=== PATIENT | male | born 1955 | race Two or more races ===

== ENCOUNTER 2019-01-21 02:29 | Inpatient (IN) | payer OTHER ==
[~2019-01-21] VITALS: Ht 177.8 cm; Wt 112.9 kg
--- NOTE | 2019-01-21 09:20 | NUR ---
TELE/RN NOTES RECEIVED PATIENT FROM [facility]. PATIENT WAS BIB 2 EMT FROM [facility]. PATIENT IS ALERT AND ORIENTED X3. NO PAIN OR ACUTE DISTRESS AT THIS TIME. RESPIRATION EVEN AND UNLABORED. PATIENT WAS ABLE TO TRANSFER SELF TO BED. WHILE ATTEMPTING TO DO INITIAL SKIN ASSESSMENT PATIENT REFUSED. PATIENT IS NOTED WITH IV ACCESS ON LEFT HAND. INTACT AND PATENT. FLUSHING WELL. PATIENT ALSO CAME WITH A RED BAG OF BELONGINGS. PATIENT ABLE TO MAKE NEEDS KNOWN. ALL NEEDS ANTICIPATED. KEPT CLEAN AND DRY. CALL LIGHT WITHIN REACHED. BED LOCKED AND IN LOWEST POSITION. SAFETY MAINTAINED. WILL CONTINUE TO MONITOR CLOSELY.
[2019-01-21] MEDS ORDERED: AMLO10TA7 PO (10:25)
[2019-01-21] MEDS ORDERED: LISI40TA4 PO (10:25)
[2019-01-21] MEDS ORDERED: FOLI1TAB16 PO (10:25)
[2019-01-21] MEDS ORDERED: ALBU1.25 INH (10:25)
--- NOTE | 2019-01-21 10:25 | NUR ---
TELE/RN NOTES CALLED [facility] AND PAGED DR. COOK FOR ADMITTING ORDERS. AWAITING FOR CALL BACK.
--- NOTE | 2019-01-21 10:38 | NUR ---
TELE/RN NOTES RECEIVED CALL BACK FROM DR. COOK. ACCORDING TO HIM HE WILL COME TO THE UNIT TO DO THE ADMITTING ORDERS. PATIENT REMAINS IN STABLE CONDITION. WILL CONTINUE TO MONITOR.
[2019-01-21 12:00] VITALS: BP 163/74
[2019-01-21] MEDS ORDERED: LORAZEPAM INJ 2 MG/ML VIAL IV PRN (13:30)
[2019-01-21] MEDS ORDERED: ACETAMINOPHEN 325 MG TABLET PO PRN (13:30)
[2019-01-21] MEDS ORDERED: MVI-12 10ML IV ONE (13:30)
[2019-01-21] MEDS ORDERED: ONDANSETRON HCL/PF 4 MG/2 ML VIAL IVP PRN (13:30)
[2019-01-21] MEDS ORDERED: IV NS 0.9% 1,000 ML IV SCH (13:30)
[2019-01-21] MEDS ORDERED: ALBUTEROL HALF STRENGTH 1.25 MG/3 ML VIAL.NEB INH PRN (13:30)
[2019-01-21] MEDS ORDERED: MAGNESIUM HYDROXIDE 30 ML UDC PO PRN (13:30)
[2019-01-21] MEDS ORDERED: MAG HYDROX/AL HYDROX/SIMETH 30 ML UDC PO PRN (13:30)
[2019-01-21] MEDS ORDERED: Z GUARD REMEDY 2 OZ OINT TP PRN (13:30)
[2019-01-21] MEDS ORDERED: HYDROCODONE/APAP 5/325MG 1 EACH TABLET PO PRN (13:30)
[2019-01-21] MEDS ORDERED: ZOLPIDEM TARTRATE 5 MG TABLET PO PRN (13:30)
[2019-01-21] MEDS ORDERED: MVI ADULT 10ML VIAL = 1AMP 10 ML in IV NS 0.9% 1,000 ML IV ONE (14:00)
[2019-01-21] MEDS: Thiamine 100 MG in IV D5W 50 ML IV SCH (14:55)
[2019-01-21] MEDS: LISINOPRIL (20MG) 20 MG TABLET PO SCH (15:03)
[2019-01-21] MEDS: Folic acid 1 MG in IV D5W 50 ML IV SCH (15:32)
[2019-01-21 16:00] VITALS: BP 192/97
--- NOTE | 2019-01-21 18:55 | NUR ---
MS/RN CLOSING NOTES PATIENT CONTINUES TO REMAIN IN STABLE CONDITION THROUGHOUT THE SHIFT. PROVIDED COMFORT AND SAFETY. NO PAIN OR ACUTE DISTRESS AT THIS TIME. RESPIRATION EVEN AND UNLABORED. SKIN IS DRY WARM TO TOUCH. PATIENT ABLE TO TOLERATE MEALS AND MEDS WELL. IV ACCESS ON L HAND INTACT AND PATENT. FLUSHING WELL. ALL NEEDS ANTICIPATED. KEPT CLEAN AND DRY. CALL LIGHT WITHIN REACHED. SAFETY MAINTAINED. BED LOCKED AND IN LOWEST POSITION. WILL CONTINUE TO MONITOR CLOSELY. ENDORSED TO PM SHIFT FOR SANDRA.
[2019-01-21 20:00] VITALS: BP 156/84
[2019-01-21] MEDS ORDERED: IV NS 0.9% 1,000 ML IV PRN (23:00)
[2019-01-22 04:00] VITALS: BP_SYST 149; BP_SYST 161; BP_DIAS 71; BP_DIAS 73
[2019-01-22 06:30] LABS: BASOPHILS % (AUTO) 0.9 % (0.0-2.0); EOSINOPHILS % (AUTO) 0.7 % (0.0-6.0); HEMATOCRIT 39 % (39-51); HEMOGLOBIN 13.2 g/dL (13.5-17.5); LYMPHOCYTES # (AUTO) 1.1 /CMM (0.8-4.8); LYMPHOCYTES % (AUTO) 25.6 % (20.0-44.0); MEAN CORPUSCULAR HGB CONC 34 g/dl (31.0-36.0); MEAN CORPUSCULAR VOLUME 99 fL (80-96); MONOCYTES # (AUTO) 0.9 /CMM (0.1-1.30); NEUTROPHILS # (AUTO) 2.4 /CMM (1.8-8.9); NEUTROPHILS % (AUTO) 52.8 % (43.0-81.0); PLATELET COUNT (AUTO) 143 /CMM (150-450); RED BLOOD CELL COUNT(AUTO) 3.88 MIL/uL (4.5-6.0); WHITE BLOOD COUNT (AUTO) 4.5 K/uL (4.3-11.0)
--- NOTE | 2019-01-22 06:41 | NUR ---
RN CLOSING NOTES, PATIENT IN BED AWAKE AT THIS TIME, ASKING FOR BREAKFAST, A/O X3 ABLE TO VERBALIZED NEEDS, BREATHING EVEN AND UNLABORED, IV ACCESS ON RIGHT HAND PATENT AND INTACT, ALL NEEDS PROVIDED, KEPT CLEAN AND DRY, BED LOCKED AND IN LOWEST POSITION, 2 S/R OF BED UP, CALL LIGHT WITHIN REACHED, ALL SAFETY MEASURES IN PLACED, WILL ENDORSED CONTINUITY OF CARE TO ONCOMING NURSE.
[2019-01-22 06:49] LABS: CREATININE 0.6 mg/dL (0.6-1.3); MAGNESIUM 1.4 mg/dL (1.8-2.4); PHOSPHORUS 3.5 mg/dL (2.5-4.9); POTASSIUM 3.3 mmol/L (3.5-5.1)
--- NOTE | 2019-01-22 07:15 | NUR ---
RN OPENING NOTES RECEIVED PATIENT AWAKE, RESTING IN BED. HE IS AOX4, VERBAL, AND AMBULATORY. HE DENIES ANY PAIN OR DISCOMFORT AT THIS TIME. HE IS ON RA, TOLERATING WELL, SHOWS NO S/SX OF RESP DISTRESS OR SOB. BLE ARE INFLAMED, HARD TO TOUCH, WITH DRY FLAKY SKIN, WILL TAKE PICTURES AND PLACE IN PT CHART. IV SITE ON R HAND 22G INFUSING NS AT 100 ML/HR. SAFETY MEASURES HAVE BEEN IMPLEMENTED, CALL LIGHT IS WITHIN REACH, BED IS IN LOWEST AND LOCKED POSITION, SIDE RAILS UP X2, WILL CONTINUE TO MONITOR FOR ANY CHANGES.
--- NOTE | 2019-01-22 07:58 | NUR ---
PT WENT TO THE BATHROOM AND USED THE CALL LIGHT. WENT INTO THE BATHROOM AND PT IS SITTING ON THE TOILET WITH BLOOD DRIPPING FROM HIS IV SITE. IV SITE WAS REMOVED, BLOOD WAS CLEANED, GOWN WAS CHANGED. WILL INSERT A NEW IV
[2019-01-22 08:00] VITALS: BP 156/86
[2019-01-22] MEDS ORDERED: FOLIC ACID 1 MG TABLET PO SCH (09:00)
[2019-01-22] MEDS: AMLODIPINE BESYLATE 10 MG TABLET PO SCH (09:07)
[2019-01-22] MEDS: CYANOCOBALAMIN 500 MCG TABLET PO SCH (09:08)
[2019-01-22] MEDS: LISINOPRIL (20MG) 20 MG TABLET PO SCH (09:08)
--- NOTE | 2019-01-22 10:10 | NUR ---
Social service consult requested by Dr. Castillo for homelessness and alcohol abuse. Pt. is a 63 year old male who was admitted from [facility] to [facility] for Hyponatremia. SW met with pt. bedside. Pt. is alert and oriented x 4. Pt. was sitting upright on his bed watching TV. Pt. has his belongings in his room. Pt. states he is homeless and resides at a bus stop on [address] in [place]. PERNELL offered pt. [facility] placement in [place], however pt. declined stating, " I know where it is but I want to go back to my bus stop." Pt. declined all other resources. Pt. receives food stamps monthly. Pt's sister Rowena, is his emergency contact . Prior to being homeless, pt. was living with is brother for about a year but got into an argument and decided to live on his own. Pt. drinks approximately 12 packs of beer per day. Pt. declined referrals to alcohol rehabilitation programs. Pt. declined all resources and wants to go back to [place]. Pt. will require taxi transportation to [facility] located at [address] [facility] [place] [address]. Pt. states he knows how to get to [place] via [employer]. PERNELL updated pt's RN and DWIGHT Martin regarding pt's discharge plan. PERNELL placed Homeless patient Waiver form in pt's chart for him to sign upon discharge. PERNELL updated pt's RN regarding Homeless waiver form.
[2019-01-22] MEDS ORDERED: POTASSIUM CHLORIDE 20 MEQ TAB.PRT.SR PO SCH (11:00)
--- NOTE | 2019-01-22 11:04 | NUR ---
PT IS NONCOMPLIANT WITH IV SITES, PAGED DR. MASCORRO TO TRY AND SEE IF WE CAN CHANGE ALL IV MEDS TO PO. WAITING FOR HIS RESPONSE.
[2019-01-22] MEDS: Magnesium 1GM/D5W 100ML PREMIX 100 ML IV SCH ×4 (11:22→14:58)
[2019-01-22] MEDS: Thiamine 100 MG in IV D5W 50 ML IV SCH (16:34)
[2019-01-22] MEDS: Folic acid 1 MG in IV D5W 50 ML IV SCH (17:43)
--- NOTE | 2019-01-22 19:37 | NUR ---
RN CLOSING NOTES PATIENT IS RESTING IN BED COMORTABLY AT THIS TIME, DENIES ANY PAIN OR DISCOMFORT. VITAL SIGNS ARE STABLE, NO ACUTE CHANGES OCCURRED THROGHOUT THE SHIFT, PT NEEDS HAVE BEEN MET. SAFETY MEASURES HAVE BEEN IMPLEMENTED, CALL LIGHT IS WITHIN REACH, BED IS IN LOWEST AND LOCKED POSITION, SIDE RAILS UP X2, PT HAS BEEN ENDORSED TO NIGHTSHIFT RN FOR CONTINUITY OF CARE.
[2019-01-22 20:00] VITALS: BP 127/71
--- NOTE | 2019-01-22 20:14 | NUR ---
[address] HILLIARD AND OBTAINED 1:1 SITTER ORDER DUE TO PATIENT IMPULSIVENESS, TRYING TO GET OUT OF BED WITHOUT CALLING FOR ASSISTANCE, AND WALKING TO BATHROOM WITH UNSTEADY GAIT. ORDER NOTED AND CARRIED OUT.
[2019-01-23 04:07] VITALS: BP 148/80
[2019-01-23 07:39] LABS: BASOPHILS # (AUTO) 0.1 /CMM (0.0-0.2); BASOPHILS % (AUTO) 0.9 % (0.0-2.0); EOSINOPHILS % (AUTO) 2.8 % (0.0-6.0); HEMATOCRIT 39 % (39-51); HEMOGLOBIN 13.1 g/dL (13.5-17.5); LYMPHOCYTES # (AUTO) 1.4 /CMM (0.8-4.8); LYMPHOCYTES % (AUTO) 22.8 % (20.0-44.0); MEAN CORPUSCULAR HGB CONC 34 g/dl (31.0-36.0); MEAN CORPUSCULAR VOLUME 101 fL (80-96); MONOCYTES % (AUTO) 16.8 % (2.0-12.0); NEUTROPHILS # (AUTO) 3.4 /CMM (1.8-8.9); NEUTROPHILS % (AUTO) 56.7 % (43.0-81.0); PLATELET COUNT (AUTO) 152 /CMM (150-450); RED BLOOD CELL COUNT(AUTO) 3.89 MIL/uL (4.5-6.0); WHITE BLOOD COUNT (AUTO) 6.1 K/uL (4.3-11.0)
[2019-01-23 08:22] LABS: CALCIUM, SERUM 9.2 mg/dL (8.5-10.1); CREATININE 0.9 mg/dL (0.6-1.3); MAGNESIUM 1.8 mg/dL (1.8-2.4); POTASSIUM 3.5 mmol/L (3.5-5.1)
[2019-01-23] MEDS: CYANOCOBALAMIN 500 MCG TABLET PO SCH (09:24)
[2019-01-23] MEDS: AMLODIPINE BESYLATE 10 MG TABLET PO SCH (09:25)
[2019-01-23] MEDS: LISINOPRIL (20MG) 20 MG TABLET PO SCH (09:25)
[2019-01-23 12:00] VITALS: BP 135/87
--- NOTE | 2019-01-23 14:59 | NUR ---
MS RN NOTES PT LEFT THE HOSPITAL; AT 1450 WITH WHEELCHAIR AND HELP OF SITTER. PT WAS STABLE. EDUCATION PROVIDED.
[2019-01-23] MEDS ORDERED: THIAMINE HCL 100 MG TABLET PO SCH (15:00)
[2019-01-23] MEDS ORDERED: FOLIC ACID 1 MG TABLET PO SCH (15:00)
== END 2019-01-23 15:15 | disposition home or self-care (01) | DRG 775 ==
LOC: TELE1 09:58 → MEDSG1 12:23
PROVIDERS: ADMIT Family Medicine; ATTEND Family Medicine
DX: F10.129 Alcohol abuse with intoxication, unspecified (principal); I10 Essential (primary) hypertension; Z59.0 Homelessness; Z87.891 Personal history of nicotine dependence; J44.9 Chronic obstructive pulmonary disease, unspecified; Y90.9 Presence of alcohol in blood, level not specified
CPT/HCPCS: 36415; 80048-TC; 80061-TC; 83735-TC; 84100-TC; 85025-TC; 87081-TC; G0378; J2060; J3411; J3475; J3490; J7030; J7060

== ENCOUNTER 2019-02-01 21:54 | Inpatient (IN) | payer OTHER ==
[~2019-02-01] VITALS: Ht 188 cm; Wt 111.6 kg
[~2019-02-01 21:54] MED LIST: ALBU1.25 INH; AMLO10TA7 PO; FOLI1TAB16 PO; LISI40TA4 PO
[2019-02-02] VITALS (7 sets, daily range): BP systolic 126–167; BP diastolic 73–96
--- NOTE | 2019-02-02 01:25 | NUR ---
BUCKRAM SEWER NOTES PATIENT ARRIVED ON THE UNIT AT 0118 VIA GURNEY. PATIENT IS A DIRECT ADMIT FROM [facility]. PATIENT IS A/O X 2. PATIENT STATES HE WANTS TO BE FULL CODE. PATIENT STATES HE IS HOMELESS. VITALS UPON ADMISSION ARE: 140/96, PULSE 84, RESPIRATIONS 16, TEMP 98.1, O2 SAT 98% ON ROOM AIR. SR 82 ON TELE MONITOR. PATIENT DENIES PAIN AT THIS TIME. WEIGHT 246 LBS VIA BED SCALE, PATIENT STATES HE IS 6 FEET 2 INCHES TALL. SKIN ASSESSMENT DONE. IV SITE ON LEFT HAND INTACT AND PATENT. PATIENT UNABLE TO STATE IF HE TAKES ANY HOME MEDICATION. SAFETY PRECAUTIONS IMPLEMENTED; CALL LIGHT WITHIN REACH, BED LOCKED, BED LOWEST POSITION, SIDE RAILS UP X2. SKIN ASSESSMENT DONE, WITH PHOTOS. WILL CONTINUE TO MONITOR.
--- NOTE | 2019-02-02 01:35 | NUR ---
RN NOTES ABDOMEN SOFT, NON DISTENDED. NO REBOUND OR GUARDING. PATIENT WITH NO COMPLAINTS OF PAIN AT THIS TIME.
--- NOTE | 2019-02-02 01:40 | NUR ---
RN NOTES PATIENT UNABLE TO GIVE DIRECT ANSWERS. PATIENT STILL RESPONDS TO SOME QUESTIONS. PATIENT STATES HE JUST WANTS TO REST RIGHT NOW.
--- NOTE | 2019-02-02 02:25 | NUR ---
RN NOTES CALLED [facility] TO [facility] MAGGIE ROY NP FOR ADMISSION ORDERS.
--- NOTE | 2019-02-02 02:53 | NUR ---
RN NOTES NO CALL BACK FROM [facility] MAGGIE ROY. EPIC PROGRAMS DIRECTOR TRYING AGAIN.
--- NOTE | 2019-02-02 02:55 | NUR ---
RN NOTES RAYON TESTER, MAGGIE ROY CALLED BACK. AWAITING ADMISSION ORDERS.
[2019-02-02] MEDS ORDERED: ONDANSETRON HCL/PF 4 MG/2 ML VIAL IVP PRN (03:30)
[2019-02-02] MEDS ORDERED: MAG HYDROX/AL HYDROX/SIMETH 30 ML UDC PO PRN (03:30)
[2019-02-02] MEDS ORDERED: ACETAMINOPHEN 325 MG TABLET PO PRN (03:30)
[2019-02-02] MEDS ORDERED: MORPHINE SULFATE INJ 2 MG/ML DISP.SYRIN IV PRN (03:30)
[2019-02-02] MEDS ORDERED: HYDROCODONE/APAP 5/325MG 1 EACH TABLET PO PRN (03:30)
[2019-02-02] MEDS ORDERED: Z GUARD REMEDY 2 OZ OINT TP PRN (03:30)
[2019-02-02] MEDS ORDERED: MAGNESIUM HYDROXIDE 30 ML UDC PO PRN (03:30)
[2019-02-02] MEDS: IV NS 0.9% 1,000 ML IV PRN (03:41)
[2019-02-02 06:34] LABS: BASOPHILS # (AUTO) 0.1 /CMM (0.0-0.2); BASOPHILS % (AUTO) 1.2 % (0.0-2.0); EOSINOPHILS % (AUTO) 1.6 % (0.0-6.0); HEMATOCRIT 36 % (39-51); HEMOGLOBIN 12.4 g/dL (13.5-17.5); LYMPHOCYTES # (AUTO) 1.1 /CMM (0.8-4.8); MEAN CORPUSCULAR HGB CONC 34 g/dl (31.0-36.0); MEAN CORPUSCULAR VOLUME 99 fL (80-96); MONOCYTES # (AUTO) 0.8 /CMM (0.1-1.30); MONOCYTES % (AUTO) 15.7 % (2.0-12.0); NEUTROPHILS % (AUTO) 59.5 % (43.0-81.0); PLATELET COUNT (AUTO) 266 /CMM (150-450); RED BLOOD CELL COUNT(AUTO) 3.65 MIL/uL (4.5-6.0); WHITE BLOOD COUNT (AUTO) 5.1 K/uL (4.3-11.0)
--- NOTE | 2019-02-02 06:56 | NUR ---
RN CLOSING NOTES PATIENT AWAKE, A/O X 3. NO SIGNS OF RESPIRATORY DISTRESS. NO SHORTNESS OF BREATH NOTED. PATIENT IS AFEBRILE. PATIENT STABLE. NO SIGNS OF FACIAL GRIMACING INDICATING PAIN OR DISCOMFORT AT THIS TIME. LEFT HAND IV SITE INTACT AND PATENT, NO REDNESS OR INFILTRATION. IVF RUNNING AT 75 ML/HR. PATIENT KEPT CLEAN, DRY AND COMFORTABLE. SAFETY PRECAUTIONS IMPLEMENTED; CALL LIGHT WITHIN REACH, BED LOWEST POSITION, BED LOCKED, SIDE RAILS UP X2. ALL NEEDS ATTENDED TO AT THIS TIME. WILL ENDORSE TO DAYSWYFT NURSE FOR CONTINUITY OF CARE.
[2019-02-02 06:59] LABS: ALBUMIN 3.1 g/dL (3.4-5.0); BILIRUBIN,TOTAL 0.8 mg/dL (0.2-1.0); CALCIUM, SERUM 8.7 mg/dL (8.5-10.1); CREATININE 0.7 mg/dL (0.6-1.3); MAGNESIUM 1.6 mg/dL (1.8-2.4); PHOSPHORUS 3.8 mg/dL (2.5-4.9); POTASSIUM 4.3 mmol/L (3.5-5.1); TOTAL PROTEIN, SERUM 7.2 g/dL (6.4-8.2)
[2019-02-02 07:05] LABS: THYROID STIMULATING HORMONE 3.456 uIU/mL (0.358-3.74)
--- NOTE | 2019-02-02 07:29 | NUR ---
RN OPENING NOTE PT WAS RECEIVED IN BED AT LOWEST AND LOCKED POSITION WITH SIDE RAILS UP X2, A/O 2-3 BREATHING EVEN AND UNLABORED ON RA WITH NO S/S OF ANY DISTRESS OR PAIN NOTED AT THIS TIME, ON TELE MONITOR SHOWING SR, CURRENTLY NPO FOR DIAGNOSIS OF SBO, PT NOTED TO CURRENTLY BE ANGRY AND HOSTILE AND NOT WANTING TO BE DISTURBED, SAFETY PRECAUTIONS IN PLACE, CALL LIGHT WITHIN REACH, WILL MONITOR PT ACCORDINGLY
[2019-02-02] MEDS: PANTOPRAZOLE 40 MG VIAL IV SCH (08:03)
[2019-02-02] MEDS ORDERED: ALBU8.5H8 IH (08:55)
[2019-02-02] MEDS: Magnesium 1GM/D5W 100ML PREMIX 100 ML IV SCH ×2 (11:28→12:13)
--- NOTE | 2019-02-02 18:09 | NUR ---
RN CLOSING NOTE PT IN BED AT LOWEST AND LOCKED POSITION WITH SIDE RAILS UP X2, A/O X3 BREATHING EVEN AND UNLABORED WITH NO S/S OF ANY DISTRESS OR PAIN, IV IS PATENT AND INTACT, PLAN FOR SBFT TOMORROW, SAFETY PRECAUTIONS IN PLACE, CALL LIGHT WITHIN REACH, ALL NEEDS ATTENDED TO, WILL ENDORSE TO NIGHT RN FOR SANDRA
--- NOTE | 2019-02-02 19:30 | NUR ---
MS RN OPENING NOTE RECEIVED PATIENT IN BED. A/OX3. TOLERATING ROOM AIR. RESPIRATIONS ARE EVEN AND UNLABORED. NO SIGNS OF SOB NOTED. DENIES PAIN AT THIS TIME. NO APPARENT DISTRESS. IV ACCESS IN L HAND PATENT AND RUNNING NS @75ML/HR. BED IS LOW AND LOCKED, SIDE RAILS UP X2, HOB 30 DEGREES. CALL LIGHT WITHIN REACH. WILL CONTINUE TO MONITOR.
[2019-02-02] MEDS ORDERED: LORAZEPAM INJ 2 MG/ML VIAL IV PRN (22:30)
[2019-02-02] MEDS ORDERED: ALBUTEROL FS 2.5 MG/3 ML VIAL.NEB NEB PRN (23:00)
[2019-02-03] MEDS: IV NS 0.9% 1,000 ML IV PRN (03:16)
--- NOTE | 2019-02-03 06:54 | NUR ---
MS RN CLOSING NOTE PATIENT IN BED. A/OX3. REMAINS TOLERATING ROOM AIR. RESPIRATIONS ARE EVEN AND UNLABORED. NO SOB NOTED. NO C/O PAIN. NO APPARENT DISTRESS THROUGHOUT SHIFT. IV ACCESS MAINTAINED IN L HAND PATENT AND RUNNING NS @75ML/HR. BED REMAINS LOW AND LOCKED, SIDE RAILS UP X2, HOB 30 DEGREES. CALL LIGHT WITHIN REACH. WILL ENDORSE TO NEXT SHIFT.
[2019-02-03 07:02] LABS: BASOPHILS # (AUTO) 0.1 /CMM (0.0-0.2); BASOPHILS % (AUTO) 1.3 % (0.0-2.0); EOSINOPHILS % (AUTO) 2.1 % (0.0-6.0); HEMATOCRIT 38 % (39-51); LYMPHOCYTES # (AUTO) 1.5 /CMM (0.8-4.8); LYMPHOCYTES % (AUTO) 24.5 % (20.0-44.0); MEAN CORPUSCULAR HGB CONC 34 g/dl (31.0-36.0); MEAN CORPUSCULAR VOLUME 100 fL (80-96); MONOCYTES # (AUTO) 0.7 /CMM (0.1-1.30); MONOCYTES % (AUTO) 12.6 % (2.0-12.0); NEUTROPHILS # (AUTO) 3.5 /CMM (1.8-8.9); NEUTROPHILS % (AUTO) 59.5 % (43.0-81.0); PLATELET COUNT (AUTO) 306 /CMM (150-450); WHITE BLOOD COUNT (AUTO) 5.9 K/uL (4.3-11.0)
--- NOTE | 2019-02-03 07:15 | NUR ---
MS RN INITIAL NOTES Report received at bedside. Patient received in bed, awake, alert and verbally responsive. No S&S of distress. Denies any pain at the moment. Safety measures in place. Will continue to monitor and assess patient
[2019-02-03 07:34] LABS: CREATININE 0.7 mg/dL (0.6-1.3); MAGNESIUM 1.8 mg/dL (1.8-2.4); PHOSPHORUS 3.6 mg/dL (2.5-4.9); POTASSIUM 3.8 mmol/L (3.5-5.1)
[2019-02-03 08:00] VITALS: BP 142/80
[2019-02-03] MEDS ORDERED: LISINOPRIL (20MG) 20 MG TABLET PO SCH (09:00)
[2019-02-03] MEDS ORDERED: THIAMINE HCL 100 MG TABLET PO SCH (09:00)
[2019-02-03] MEDS ORDERED: FOLIC ACID 1 MG TABLET PO SCH (09:00)
[2019-02-03] MEDS ORDERED: AMLODIPINE BESYLATE 10 MG TABLET PO SCH (09:00)
[2019-02-03] MEDS: PANTOPRAZOLE 40 MG VIAL IV SCH (09:39)
[2019-02-03] MEDS ORDERED: DIATR MEGLU/DIATRIZOATE SODIUM 120 ML BOTTLE (GASTROGRAPHIN) ONE (10:52)
--- NOTE | 2019-02-03 10:57 | NUR ---
MS RN DIAGNOSTIC TESTING Patient was transported to Radiology for abdominal XR via wheelchair in stable condition. Patient awake, alert and oriented. Verbally responsive.
--- NOTE | 2019-02-03 10:58 | NUR ---
Social service consult requested by Dr. Bravo for homelessness. Pt. is a 63 year old male who was transferred from [facility] for partial SBO and Hyponatremia. SW attempted to meet with the pt., however pt. was not in the room. Pt. for the Radiology dept for abdominal XR. SW to see pt. later this afternoon.
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
[2019-02-03 15:59] VITALS: BP 123/71
--- NOTE | 2019-02-03 16:15 | NUR ---
MS ELECTRONIC GLUER NOTES Patient is cleared for discharge per provider. Discharge papers provided, reviewed and signed by the patient. Belongings form reviewed and signed by patient as well along with homeless waiver form. All forms placed in chart. IV access removed with cath tip intact. No bleeding noted. ID band removed. Assisted patient with changing clothes and bathroom use. Provided pants to patient as well. Patient denies any pain/discomfort. No SOB/labored breathing noted. Not in any type of distress. Afebrile. Transportation arranged by property worker. Will call taxi for fern picker. Will continue to monitor patient. Safety measures implemented. 123/71 74 20 98.3 100% room air
--- NOTE | 2019-02-03 16:20 | NUR ---
MS MANAGER PERSONNEL SELECTION NOTES Train tickets and Taxi voucher on hand. Called Taxi and will be ready for picker and sorter load and unload in 15 -20 minutes. Patient made aware. Addendum: 02/03/19 at 1649 by HUNG KEITA RN MS BRUNNERMANAGER PERSONNEL SELECTION NOTES Patient [facility] for taxi picker and sorter load and unload via wheelchair in stable condition. All belongings with patient. Assisted to get on the taxi with no incidence.
== END 2019-02-03 16:43 | disposition home or self-care (01) | DRG 247 ==
LOC: TELE 02-02 01:11 → MED 02-02 08:36
PROVIDERS: ADMIT Hospitalist; ATTEND Hospitalist
DX: K56.600 Partial intestinal obstruction, unspecified as to cause (principal); E44.1 Mild protein-calorie malnutrition; I25.10 Atherosclerotic heart disease of native coronary artery without angina pectoris; D53.9 Nutritional anemia, unspecified; E66.9 Obesity, unspecified; I10 Essential (primary) hypertension; J44.9 Chronic obstructive pulmonary disease, unspecified; Z87.891 Personal history of nicotine dependence; F10.10 Alcohol abuse, uncomplicated; Y90.9 Presence of alcohol in blood, level not specified; E83.42 Hypomagnesemia; Z68.31 Body mass index [BMI] 31.0-31.9, adult; Z59.0 Homelessness
CPT/HCPCS: 36415; 74250-TC; 80048-TC; 80053-TC; 80061-TC; 83735-TC; 84100-TC; 84443-TC; 85025-TC; 87081-TC; C9113; G0378; J3475; J7030; Q9963

== ENCOUNTER 2019-02-09 22:15 | Inpatient (IN) | payer OTHER ==
[~2019-02-09] VITALS: Ht 188 cm; Wt 114.8 kg
[~2019-02-09 22:15] MED LIST changes: -ALBU1.25 INH; +ALBU8.5H8 IH
--- NOTE | 2019-02-10 02:25 | NUR ---
RECEIVED PATIENT DIRECT ADMIT FROM [facility] FOR DX BLE CELLULITIS. AO X 3, ABLE TO MAKE NEEDS KNOWN. NO ACUTE DISTRESS N0TED. DENIES ANY PAIN AT THIS TIME. IV SITE PATENT, INTACT; FLUSHED. SKIN ASSESSMENT DONE. BELONGINGS DOCUMENTED. SAFETY REMINDERS GIVEN. ON LOW BED WITH BILATERAL UPPER SIDE RAILS UP. CALL ABDI WITHIN EASY REACH. WILL CONTINUE TO MONITOR. WILL GET ADMIT ORDERS FROM DR. SOLER.
[2019-02-10 02:30] VITALS: BP 132/72
[2019-02-10] MEDS ORDERED: ONDANSETRON HCL/PF 4 MG/2 ML VIAL IV PRN (04:00)
[2019-02-10] MEDS ORDERED: ACETAMINOPHEN 325 MG TABLET PO PRN (04:00)
[2019-02-10] MEDS ORDERED: HYDROCODONE/APAP 10/325MG 1 EA TABLET PO PRN (04:00)
--- NOTE | 2019-02-10 06:00 | NUR ---
PATIENT ASLEEP, EASILY AROUSABLE. RESPIRATIONS EVEN. NO SIGNS OF PAIN NOTED. NEEDS ATTENDED. SAFETY PRECAUTIONS AND COMFORT MEASURES IN PLACE. WILL GIVE REPORT TO DAY SHIFT FOR CONTINUITY OF CARE.
[2019-02-10] MEDS: IV NS 0.9% 1,000 ML IV PRN (06:17)
[2019-02-10] MEDS ORDERED: ENOXAPARIN SODIUM 40 MG/0.4 ML DISP.SYRIN SQ ONE (06:37)
[2019-02-10 07:22] LABS: BASOPHILS # (AUTO) 0.1 /CMM (0.0-0.2); BASOPHILS % (AUTO) 0.8 % (0.0-2.0); EOSINOPHILS % (AUTO) 0.6 % (0.0-6.0); HEMATOCRIT 38 % (39-51); HEMOGLOBIN 12.8 g/dL (13.5-17.5); LYMPHOCYTES # (AUTO) 1.7 /CMM (0.8-4.8); LYMPHOCYTES % (AUTO) 24.3 % (20.0-44.0); MEAN CORPUSCULAR HGB CONC 34 g/dl (31.0-36.0); MEAN CORPUSCULAR VOLUME 99 fL (80-96); MONOCYTES # (AUTO) 0.9 /CMM (0.1-1.30); MONOCYTES % (AUTO) 12.4 % (2.0-12.0); NEUTROPHILS # (AUTO) 4.4 /CMM (1.8-8.9); NEUTROPHILS % (AUTO) 61.9 % (43.0-81.0); PLATELET COUNT (AUTO) 289 /CMM (150-450); RED BLOOD CELL COUNT(AUTO) 3.86 MIL/uL (4.5-6.0)
[2019-02-10 07:48] LABS: CALCIUM, SERUM 8.9 mg/dL (8.5-10.1); CREATININE 0.7 mg/dL (0.6-1.3); MAGNESIUM 1.6 mg/dL (1.8-2.4); PHOSPHORUS 3.8 mg/dL (2.5-4.9)
[2019-02-10 08:00] VITALS: BP 148/80
--- NOTE | 2019-02-10 08:00 | NUR ---
PATIENT RECEIVED DURING THE AM SHIFT. PATIENT WAS ASLEEP DURING INITIAL ROUNDS BUT IS EASILY AROUSED. PATIENT IS SATURATING WELL IN ROOM AIR AND BREATHING IS UNLABORED. PATIENT HAS PAIN ON BILATERAL FEET, WHEN AREA IS TOUCH. PATIENT STATED SHARP PAINS WHEN AREA IS TOUCH. PATIENTS BILATERAL FEET PRESENTS EDEMA AND REDNESS . PATIENT PATIENT HAS IV RIGHT HAND NS INFUSING 75 ML CONTINUOS. PATIENT ALSO COMPLAINED OF DIARRHEA. WILL CONTINUE TO MONITOR. PATIENT CALL LIGHT WITH IN REACH . SAFETY MAINTAIN
[2019-02-10] MEDS ORDERED: METH4TAB16 PO (08:05)
[2019-02-10] MEDS ORDERED: CEPH500C2 PO (08:05)
[2019-02-10] MEDS ORDERED: FEE PK DOSING 1 MIN EA MC ONE (08:48)
[2019-02-10] MEDS: PANTOPRAZOLE 40 MG TABLET.DR PO SCH ×2 (09:19→16:25)
[2019-02-10] MEDS: Magnesium 1GM/D5W 100ML PREMIX 100 ML IV SCH ×2 (09:41→12:11)
--- NOTE | 2019-02-10 11:20 | NUR ---
Social service consult requested by Dr. Mike for homelessness. Pt. is a 63 year old male who was a direct admit from [facility] for sepsis and hypotension. PERNELL is very familiar with the pt. from previous admissions on 01/21 and 02/02/19. SW met with the pt. bedside. Pt. is alert and oriented x 3. Pt. appears dirty and disheveled. Pt. appears to have bouts of confusion at times. Pt. has his belongings in his room. Pt. is homeless and resides at a bus stop on [address] in [place]. Pt. receives food stamps monthly. Pt's sister Rowena, is his emergency contact . Prior to being homeless, pt. was living with is brother for about a year but got into an argument and decided to live on his own. Pt. drinks approximately 12 packs of beer per day. Pt. declined referrals to alcohol rehabilitation programs. Pt. is willing to go to a SNF, if deemed appropriate. medical and health services manager Lynsey is aware regarding SNF placement.
--- NOTE | 2019-02-10 11:25 | NUR ---
MS1/RN ROUNDS - DR. NAM PT SEEN & EXAMINED BY DR. NAM. NO NEW ORDERS RECEIVED AT THIS TIME.
--- NOTE | 2019-02-10 11:42 | NUR ---
WOUND CARE CONSULT: PT PRESENTS INDEPENDENT WITH BED MOBILITY AND CONTINENT WITH REDNESS AND SWELLING TO BILATERAL LOWER LEGS, PRESENT ON ADMISSION. DEFER TO MD. WILL SEE PRN.
[2019-02-10] MEDS ORDERED: Z GUARD REMEDY 4 OZ OINT TP PRN (12:00)
[2019-02-10] MEDS ORDERED: VANCOMYCIN 1.5 GM in IV D5W 500 ML IV SCH (13:00)
[2019-02-10] MEDS: METRONIDAZOLE 500MG/ NS 100ML 500 MG in PREMIX 1 EA IV SCH ×2 (15:44→21:06)
[2019-02-10 16:00] VITALS: BP 116/70
[2019-02-10] MEDS: VANCOMYCIN 1.5 GM in IV D5W 500 ML IV SCH (17:01)
--- NOTE | 2019-02-10 17:30 | NUR ---
MS/ RN PM ROUNDS NO CHANGE OF CONDITION. PM CARE PROVIDED
--- NOTE | 2019-02-10 19:29 | NUR ---
RN/MS AM SHIFT END NOTES NO ACUTE CHANGE OF CONDITION DURING THE SHIFT ALL NEEDS MET. PATIENT ENDORSED BY PM SHIFT TO CONTINUE CARE. PATIENT IS INDEPENDENT . PATIENT IS RESTING ON THE BEST DURING CHANGE OF SHIFT. ON COMING SHIFT WAS NOTIFIED ABOUT SPUTUM SAMPLE DURING CHANGE OF SHIFTCALL LIGHT WITH IN REACH AND SAFETY MAINTAINED
--- NOTE | 2019-02-10 19:30 | NUR ---
RN/MS PM OPENING NOTE BEDSIDE REPORT RECIEVED FROM KEE BRUNNER AND HUSEYIN KING RN. POC REVIEWED PATIENT SEEN IN NO APPARENT DISTRESS. PATIENT IS INDEPENDENT . SPUTUM SAMPLE STILL NEEDS TO BE SUBMITTED PATIENT VERBALIZED UNDERSTANDING OF REQUEST STATES , "I WILL TRY BUT HAVEN'T BEEN REALLY COUGHING ANYTHING UP. BED DOWN LOCKED SRX2 CALL LIGHT IN REACH. PT VERBALIZED UNDERSTANDING TO CALL FOR ASSISTANCE WHEN GETTING OUT OF BED.
[2019-02-10 20:00] VITALS: BP 135/69
[2019-02-11] MEDS: IV NS 0.9% 1,000 ML IV PRN (02:15)
[2019-02-11] MEDS: VANCOMYCIN 1.5 GM in IV D5W 500 ML IV SCH ×2 (03:58→15:16)
[2019-02-11] MEDS: METRONIDAZOLE 500MG/ NS 100ML 500 MG in PREMIX 1 EA IV SCH (06:15)
--- NOTE | 2019-02-11 06:30 | NUR ---
RN/MS PM CLOSING NOTE PATIENT SEEN IN NO APPARENT DISTRESS. PATIENT IS INDEPENDENT . PATIENT WAS UNABLE TO PROVIDE SPUTUM SAMPLE BUT DURING 12 HR CHECK NO ORDER FOR SAMPLE WAS DISCOVERED. PATIENT INFORMED HE NO LONGER NEEDED TO PRODUCE SAMPLE. STATES "GOOD BECAUSE I DON'T THINK ANYTHINGS COMING UP." PATIENT DENIES PAIN. BED DOWN LOCKED SRX2 CALL LIGHT IN REACH. PT VERBALIZED UNDERSTANDING TO CALL FOR ASSISTANCE WHEN GETTING OUT OF BED.
[2019-02-11 07:07] LABS: BASOPHILS % (AUTO) 0.3 % (0.0-2.0); EOSINOPHILS % (AUTO) 1.6 % (0.0-6.0); HEMATOCRIT 39 % (39-51); LYMPHOCYTES # (AUTO) 1.4 /CMM (0.8-4.8); LYMPHOCYTES % (AUTO) 21.4 % (20.0-44.0); MEAN CORPUSCULAR HGB CONC 34 g/dl (31.0-36.0); MEAN CORPUSCULAR VOLUME 100 fL (80-96); MONOCYTES # (AUTO) 0.7 /CMM (0.1-1.30); MONOCYTES % (AUTO) 11.3 % (2.0-12.0); NEUTROPHILS # (AUTO) 4.2 /CMM (1.8-8.9); NEUTROPHILS % (AUTO) 65.4 % (43.0-81.0); PLATELET COUNT (AUTO) 233 /CMM (150-450); RED BLOOD CELL COUNT(AUTO) 3.85 MIL/uL (4.5-6.0); WHITE BLOOD COUNT (AUTO) 6.4 K/uL (4.3-11.0)
[2019-02-11 07:14] LABS: ALBUMIN 3.3 g/dL (3.4-5.0); BILIRUBIN,DIRECT 0.2 mg/dL (0.0-0.2); BILIRUBIN,TOTAL 0.5 mg/dL (0.2-1.0); CALCIUM, SERUM 8.7 mg/dL (8.5-10.1); CREATININE 0.7 mg/dL (0.6-1.3); MAGNESIUM 1.5 mg/dL (1.8-2.4); PHOSPHORUS 3.8 mg/dL (2.5-4.9); POTASSIUM 3.7 mmol/L (3.5-5.1); TOTAL PROTEIN, SERUM 7.3 g/dL (6.4-8.2)
[2019-02-11 08:00] VITALS: BP 128/68
[2019-02-11 08:23] VITALS: BP 128/67
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
[2019-02-11] MEDS: PANTOPRAZOLE 40 MG TABLET.DR PO SCH ×2 (08:57→16:29)
[2019-02-11] MEDS: THIAMINE HCL 100 MG TABLET PO SCH (08:57)
[2019-02-11] MEDS: FOLIC ACID 1 MG TABLET PO SCH (08:57)
[2019-02-11] MEDS: ENOXAPARIN SODIUM 40 MG/0.4 ML DISP.SYRIN SQ SCH (09:03)
--- NOTE | 2019-02-11 09:04 | NUR ---
Patient now says he considers senior care plan for discharge as a possibility. Marty Coates RN
--- NOTE | 2019-02-11 10:06 | NUR ---
Patient initially removed IV for adl's, requested afterward to keep IV off and now forgot the original request, but remembered when magnetic tape typewriter operator recalled the event. IV fluids back up at 75ml per hour normal saline. Marty Coates RN
[2019-02-11] MEDS: Magnesium 1GM/D5W 100ML PREMIX 100 ML IV SCH ×2 (10:24→11:29)
--- NOTE | 2019-02-11 10:38 | NUR ---
Physical therapy evaluation at this time. Marty Coates RN
[2019-02-11] MEDS: METRONIDAZOLE 500 MG TABLET PO SCH ×2 (12:11→20:52)
[2019-02-11 16:00] VITALS: BP 143/60
[2019-02-11 17:17] VITALS: BP 143/60
--- NOTE | 2019-02-11 19:16 | NUR ---
Handoff to MYESHA Nieves. Marty Coates RN
[2019-02-11 20:00] VITALS: BP 156/97
[2019-02-12] MEDS: VANCOMYCIN 1.5 GM in IV D5W 500 ML IV SCH (03:53)
[2019-02-12 04:18] LABS: BASOPHILS # (AUTO) 0.1 /CMM (0.0-0.2); BASOPHILS % (AUTO) 0.7 % (0.0-2.0); EOSINOPHILS % (AUTO) 2.2 % (0.0-6.0); HEMATOCRIT 40 % (39-51); HEMOGLOBIN 13.5 g/dL (13.5-17.5); LYMPHOCYTES # (AUTO) 2.1 /CMM (0.8-4.8); LYMPHOCYTES % (AUTO) 24.6 % (20.0-44.0); MEAN CORPUSCULAR HGB CONC 34 g/dl (31.0-36.0); MEAN CORPUSCULAR VOLUME 99 fL (80-96); MONOCYTES # (AUTO) 0.8 /CMM (0.1-1.30); MONOCYTES % (AUTO) 9.6 % (2.0-12.0); NEUTROPHILS # (AUTO) 5.4 /CMM (1.8-8.9); NEUTROPHILS % (AUTO) 62.9 % (43.0-81.0); PLATELET COUNT (AUTO) 247 /CMM (150-450); RED BLOOD CELL COUNT(AUTO) 4.07 MIL/uL (4.5-6.0); WHITE BLOOD COUNT (AUTO) 8.6 K/uL (4.3-11.0)
[2019-02-12 04:28] LABS: CALCIUM, SERUM 8.9 mg/dL (8.5-10.1); CREATININE 0.8 mg/dL (0.6-1.3); MAGNESIUM 1.7 mg/dL (1.8-2.4); PHOSPHORUS 4.5 mg/dL (2.5-4.9); POTASSIUM 4.1 mmol/L (3.5-5.1)
[2019-02-12] MEDS: METRONIDAZOLE 500 MG TABLET PO SCH ×2 (05:29→12:39)
[2019-02-12 07:00] VITALS: BP 148/66
--- NOTE | 2019-02-12 07:35 | NUR ---
MS RN OPENING NOTES PATIENT IN BED RESTING COMFORTABLY. PATIENT BREATHING IS EVEN AND UNLABORED. PATIENT IN NO ACUTE DISTRESS. NO SOB NOTED. NO FACIAL GRIMACING NOTED. SAFETY PRECAUTIONS IN PLACE. PATIENT BED IS LOCKED AND IN LOWEST POSITION. CALL LIGHT WITHIN REACH. WILL CONTINUE TO MONITOR.
[2019-02-12] MEDS: PANTOPRAZOLE 40 MG TABLET.DR PO SCH (09:02)
[2019-02-12] MEDS: THIAMINE HCL 100 MG TABLET PO SCH (09:02)
[2019-02-12] MEDS: FOLIC ACID 1 MG TABLET PO SCH (09:02)
[2019-02-12] MEDS: ENOXAPARIN SODIUM 40 MG/0.4 ML DISP.SYRIN SQ SCH (09:03)
[2019-02-12] MEDS ORDERED: MAGNESIUM OXIDE 400 MG TABLET PO ONE (11:00)
--- NOTE | 2019-02-12 11:01 | NUR ---
PERNELL met with pt. and his RN bedside to discuss discharge plan. Pt. is from [facility] and would like to go back there. Pt. has been medically cleared for discharge. Pt. stated he will buy a train ticket from [employer] to go to [place]. PERNELL informed pt. the hospital will arrange for a taxi to take him to [facility] train station located at [address] [facility]. Pt. agreed to the discharge plan. PERNELL also gave pt. information on [facility] homeless half-way [place] at [address] [place] [address]. PERNELL encouraged pt. to follow up with the half-way for homeless services. No other social service needs are requested at this time. SW is available, if needed. Homeless Patient waiver form has been placed in pt's chart for pt. to sign upon discharge. PERNELL updated STEFFANIE Brandt with pt's discharge plan.
[2019-02-12] MEDS ORDERED: Magnesium 1GM/D5W 100ML PREMIX 100 ML IV SCH (11:31)
--- NOTE | 2019-02-12 11:45 | NUR ---
MS RN NOTE PATIENT IS REFUSING SKIN ASSESSMENT PHOTOS. PATIENT RAISES VOICE AND STATES " I DONT WANT TO GET INTO ALL THIS PICTURE TAKING STUFF, YOU GUYS HAVE DONE THAT ENOUGH. I DONT WANT ANYMORE SKIN ASSESSMENTS OR PHOTOS. I REFUSE." I EXPLAINED RISKS VS BENEFITS 3X AND PATIENT CONTINUED TO REFUSE.
--- NOTE | 2019-02-12 14:06 | NUR ---
MS PLASMA CENTER NURSE NOTE PATIENT MEDICALLY STABLE TO BE DISCHARGED. PATIENT IN NO ACUTE DISTRESS. NO SOB NOTED. PATIENT BREATHING IS EVEN AND UNLABORED. VITAL SIGNS WNL. PATIENT DISCHARGED INSTRUCTIONS PROVIDED, PATIENT VERBALIZED UNDERSTANDING. PRESCRIPTION GIVEN TO PATIENT. PATIENT BELONGINGS LIST SIGNED AND IN CHART. PATIENT HAS ALL BELONGINGS WITH HIM. HOMELESS WAIVER FORM SIGNED. PATIENT ACKNOWLEDGED. PATIENT PROVIDED WITH ASSISTED RESOURCES BY . PATIENT TO GO TO [employer] [facility] [employer] WITH ADDRESS PROVIDED BY RADIO FREQUENCY ENGINEER AND PATIENT AGREED AND ACKNOWLEDGED LOCATION. PATIENT REFUSED TO HAVE SKIN ASSESSMENT, EXPLAINED RISKS VS BENEFITS AND PATIENT CONTINUED TO REFUSE HAVE SKIN ASSESSMENT AND PHOTOS. IV REMOVED. ID BANDS REMOVED. PATIENT KEPT CLEAN, DRY, AND COMFORTABLE DURING MY SHIFT. MD AWARE OF DISCHARGE. Addendum: 02/12/19 at 1433 by RAINE BLACK RN PATIENT REFUSED TO HAVE SKIN ASSESSMENT, EXPLAINED RISKS VS BENEFITS AND PATIENT CONTINUED TO REFUSE SKIN ASSESSMENT AND PHOTOS.
[2019-02-12] MEDS ORDERED: VANCOMYCIN HCL 1.25 GM in IV D5W 250 ML IV SCH (16:00)
== END 2019-02-12 14:25 | disposition home or self-care (01) | DRG 383 ==
LOC: TELE 02-10 02:18 → MED 02-10 04:41
PROVIDERS: ADMIT Student in an Organized Health Care Education/Training Program
DX: L03.115 Cellulitis of right lower limb (principal); I95.9 Hypotension, unspecified; K70.30 Alcoholic cirrhosis of liver without ascites; E83.42 Hypomagnesemia; L03.116 Cellulitis of left lower limb; F10.129 Alcohol abuse with intoxication, unspecified; I10 Essential (primary) hypertension; J44.9 Chronic obstructive pulmonary disease, unspecified; Z59.0 Homelessness; Y90.3 Blood alcohol level of 60-79 mg/100 ml; Z87.891 Personal history of nicotine dependence; D64.9 Anemia, unspecified; R74.0 Nonspecific elevation of levels of transaminase and lactic acid dehydrogenase [LDH]; Y90.9 Presence of alcohol in blood, level not specified
CPT/HCPCS: 36415; 80048-TC; 80076-TC; 80202-TC; 83735-TC; 84100-TC; 84484-TC; 85025-TC; 87081-TC; 93970-TC; 97116-TC; 97530-TC; A4216; G0378; J1650; J3370; J3475; J3490; J7030; J7060